=== PATIENT | female | born 1975 | race Hispanic/Latino ===

== ENCOUNTER 2018-10-04 22:00 | Emergency (ER) | payer OTHER ==
[2018-10-04 22:06] VITALS: BP 120/87; PULSE 84; RESP 16; TEMP 98; O2SAT 98
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
== END 2018-10-04 23:53 | disposition home or self-care (01) ==
LOC: H.ER 22:00
DX: S39.012A Strain of muscle, fascia and tendon of lower back, initial encounter (principal); V43.62XA Car passenger injured in collision with other type car in traffic accident, initial encounter; Y92.410 Unspecified street and highway as the place of occurrence of the external cause; Z88.8 Allergy status to other drugs, medicaments and biological substances